=== PATIENT | male | born 1970 | race Caucasian/White ===

== ENCOUNTER 2018-10-19 20:49 | Observation (INO) | payer OTHER ==
[~2018-10-19] VITALS: Ht 185.4 cm; Wt 72.8 kg
[2018-10-19] MEDS ORDERED: ASPIRIN 81 MG CHEW TAB PO ONE (21:45)
[2018-10-19] MEDS ORDERED: FAMOTIDINE 20 MG/2 ML VIAL IV ONE (21:45)
[2018-10-19] MEDS ORDERED: ZOLPIDEM TARTRATE 5 MG TAB PO PRN (22:00)
[2018-10-19] MEDS ORDERED: DIPHENHYDRAMINE HCL INJ 50 MG/ML VIAL IV PRN (22:00)
[2018-10-19] MEDS ORDERED: CLONIDINE HCL 0.1 MG TAB PO PRN (22:00)
[2018-10-19] MEDS ORDERED: ASPIRIN 325 MG TAB PO NR (22:00)
[2018-10-19] MEDS ORDERED: METOPROLOL TARTRATE 25 MG TAB PO SCH ×2 (22:00→22:15)
[2018-10-19] MEDS ORDERED: ENALAPRILAT IV INJ 1.25 MG/ML VIAL IV PRN (22:00)
[2018-10-19] MEDS ORDERED: HYDROCODONE/APAP 7.5MG-325MG 1 EA TAB PO PRN (22:00)
[2018-10-19] MEDS ORDERED: ACETAMINOPHEN 325 MG TAB PO PRN (22:00)
[2018-10-19] MEDS ORDERED: ONDANSETRON HCL INJ 2MG/ML 2ML 2 MG/ML VIAL IV PRN (22:00)
[2018-10-19] MEDS: FAMOTIDINE 20 MG/2 ML VIAL IV SCH (22:13)
--- NOTE | 2018-10-19 22:41 | Diagnostic Imaging Report ---
EXAMINATION: CXR 2 VIEW - HOPD INDICATION: Chest tightness, shortness of breath ^[id number] ^2205 COMPARISON: None FINDINGS: PA and lateral views TUBES and LINES: None. LUNGS: Diffuse hyperinflation consistent with COPD. Pulmonary interstitium is mildly prominent. There is mild bronchial wall thickening. Subtle left perihilar airspace opacity is visible only on the PA image. PLEURA: No pleural effusion or pneumothorax. HEART AND MEDIASTINUM: The cardiomediastinal silhouette is unremarkable.. BONES AND SOFT TISSUES: The bones are diffusely demineralized. No focal osseous lesions. Curvilinear radiodensity in the anterior inferior chest on lateral image measures 7 mm suggestive of a foreign body. UPPER ABDOMEN: No free air under the diaphragm. IMPRESSION: Pulmonary hyperinflation consistent with COPD. Prominent pulmonary interstitium may be the result of an infectious/inflammatory process. A developing infiltrate in the left midlung field cannot be excluded. Recommend close interval follow-up chest x-ray to document interval change. Signed by: Dr. Balwinder Adames MD on 10/19/2018 10:37 PM
--- OUTSIDE RECORDS SUMMARY | 2018-10-19 23:23 | XMS REPORT ---
[facility] Address Unknown Phone Unavailable Care Team Providers Care Telegraph Equipment Maintainer Name Role Phone Luzma CHATMAN Unavailable Unavailable Problems This patient has no known problems. Allergies, Adverse Reactions, Alerts This patient has no known allergies or adverse reactions. Medications This patient has no known medications. Results Test Description Test Time Test Comments Text Results Atomic Results Result Comments CXR 2 VIEW - HOPD 2018-10-19 22:33:00 [facility] [address] [place] [address] Patient Name: NOHELIA BISHOP MR #: [id number] : 1970 Age/Sex: 48/M Req #: [id number] Adm Physician: Ordered by: ARABELLA CHATMAN MD Report #: [id number] Location: [facility] Room/Bed: Procedure: [id number] HOPD/CXR 2 VIEW - HOPD Exam Date: 10/19/18 Exam Time: 2204 REPORT STATUS: Signed EXAMINATION: CXR 2 VIEW - HOPD INDICATION: Chest tightness, shortness of breath [id number] COMPARISON: None FINDINGS: PA and lateral views TUBES and LINES: None. LUNGS: Diffuse hyperinflation consistent with COPD. Pulmonary interstitium is mildly prominent. There is mild bronchial wall thickening. Subtle left perihilar airspace opacity is visible only on the PA image. PLEURA: No pleural effusion or pneumothorax. HEART AND MEDIASTINUM: The cardiomediastinal silhouette is unremarkable.. BONES AND SOFT TISSUES: The bones are diffusely demineralized. No focal osseous lesions. Curvilinear radiodensity in the anterior inferior chest on lateral image measures 7 mm suggestive of a foreign body. UPPER ABDOMEN: No free air under the diaphragm. IMPRESSION: Pulmonary hyperinflation consistent with COPD. Prominent pulmonary interstitium may be the result of an infectious/inflammatory process. A developing infiltrate in the left midlung field cannot be excluded. Recommend close interval follow-up chest x-ray to document interval change. Signed by: Dr. Damon Adames MD on 10/19/2018 10:37 PM Dictated By: DAMON ADAMES MD 36 Transcribed By: ABY on 10/19/182236 COPY TO: ARABELLA CHATMAN MD
--- NOTE | 2018-10-19 23:30 | NUR ---
REPORT ATTEMPTED, STEFAN LAMAR RECENT ADMIT Addendum: 10/19/18 at 2358 by THOM Amendment candidoone in EDM - 10/19/18 at 2359 by THOM [facility] CALLED FOR TRANSPORT
--- NOTE | 2018-10-19 23:50 | NUR ---
REPORT ATTEMPTTED, RN STILL CURRENTLY WITH RECENT ADMIT
[2018-10-20] VITALS (7 sets, daily range): BP systolic 102–118; BP diastolic 69–80
--- NOTE | 2018-10-20 01:20 | NUR ---
Pt received from ED. Pt brought over before report received. Pt A&O and in no apparent distress. Pt on tele. Pt to stay overnight. All safety measures ensured and pt call grider near.
[2018-10-20 08:06] LABS: CREATINE KINASE 64 IU/L (30-200)
[2018-10-20 08:07] LABS: CALCIUM 9.2 mg/dL (8.4-10.2); CHOL/HDL RATIO 3.3 (3.9-4.7)
[2018-10-20 08:30] LABS: FREE THYROXINE INDEX 2.4472 (1.4-3.8); THYROID STIMULATING HORMONE 2.512 uIU/mL (0.350-4.940)
[2018-10-20] MEDS: FAMOTIDINE 20 MG/2 ML VIAL IV SCH (09:41)
[2018-10-20] MEDS: NICOTINE 14 MG/EA PATCH TOP SCH (09:41)
[2018-10-20] MEDS: METOPROLOL TARTRATE 25 MG TAB PO SCH ×2 (09:58→21:50)
--- NOTE | 2018-10-20 15:35 | NUR ---
Visit made by the Spiritual Care Department Pastoral Visitor, Erma Puri. PV provided pastoral presence, prayer, hospitality, and supportive listening. Pastoral Visitor informed pt/family of the scope of Data Ware[employer] and availability. MARY SALEH Manager Real Estate Spiritual Care Department O: [phone] Pager: [phone] ([phone] number calling from)
[2018-10-20] MEDS ORDERED: ONDANSETRON HCL 4 MG ORAL DISINTEGRATING TAB PO PRN (15:45)
[2018-10-20] MEDS ORDERED: ONDANSETRON HCL INJ 2MG/ML 2ML 2 MG/ML VIAL IV PRN (15:45)
[2018-10-20 16:12] LABS: CREATINE KINASE 53 IU/L (30-200)
--- NOTE | 2018-10-20 17:55 | Diagnostic Imaging Report ---
EXAM: CT Abdomen and Pelvis WITH contrast INDICATION: Chest pain. Right lower quadrant abdominal pain. Tachycardia. COMPARISON: None. TECHNIQUE: Abdomen and pelvis were scanned utilizing a multidetector helical scanner from the lung base to the pubic symphysis after administration of IV contrast. Coronal and sagittal reformations were obtained. Routine protocol was performed. Scan was performed when during portal venous phase. IV CONTRAST: 100 mL of Isovue-370 ORAL CONTRAST: Water COMPLICATIONS: None RADIATION DOSE: Total DLP: ... mGy*cm Estimated effective dose: (DLP x 0.015 x size factor) mSv CTDIvol has been reviewed. It is below the limits set by the Radiation Protocol Committee (RPC). Dose modulation, iterative reconstruction, and/or weight based adjustment of the mA/kV was utilized to reduce the radiation dose to as low as reasonably achievable. FINDINGS: LINES and TUBES: None. LOWER THORAX: Unremarkable HEPATOBILIARY: No focal hepatic lesions. No biliary ductal dilation. GALLBLADDER: No radio-opaque stones or sludge. No wall thickening. SPLEEN: No splenomegaly. Calcified granuloma in the spleen. PANCREAS: No focal masses or ductal dilatation. ADRENALS: No adrenal nodules KIDNEYS/URETERS: Kidneys enhance symmetrically. No hydronephrosis. No cystic or solid mass lesions. No stones. GI TRACT: No abnormal distention, wall thickening, or evidence of bowel obstruction. Appendix is normal. Scattered diverticulosis without evidence of diverticulitis PELVIC ORGANS/BLADDER: Coarse calcification in the prostate gland. LYMPH NODES: No lymphadenopathy. VESSELS: Unremarkable. PERITONEUM / RETROPERITONEUM: No free air or fluid. BONES: Unremarkable. SOFT TISSUES: Unremarkable. IMPRESSION: Scattered diverticulosis without evidence of diverticulitis Signed by: Dr. Marc Lopez M.D. on 10/20/2018 5:52 PM
[2018-10-20] MEDS: FAMOTIDINE 20 MG TAB PO SCH (18:06)
[2018-10-20] MEDS: ASPIRIN 325 MG TAB EC PO SCH (18:06)
[2018-10-20] MEDS: AZITHROMYCIN 500MG/NS 250 ML 250 ML IV SCH (18:06)
[2018-10-20] MEDS: CEFTRIAXONE SOD 1 GM/NS 50 ML 50 ML IV SCH (18:06)
[2018-10-20] MEDS ORDERED: SODIUM CHLORIDE 0.9% 50ML 50 ML ONE (18:39)
[2018-10-20] MEDS ORDERED: IOPAMIDOL 370 MG/ML 200 ML INFUS..BTL INJ ONE (18:39)
[2018-10-20] MEDS ORDERED: ALBUTEROL/IPRATROPIUM 3 ML NEB NEB SCH (19:00)
--- NOTE | 2018-10-20 22:19 | NUR ---
Cardiology Consult Dictation# [id number]
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
[2018-10-21] VITALS: BP 106/64
[2018-10-21 04:00] VITALS: BP 104/71
[2018-10-21 04:42] VITALS: BP 106/64
[2018-10-21] MEDS ORDERED: SODIUM CHLORIDE 0.9% 250ML 250 ML ONE (05:45)
[2018-10-21] MEDS: CEFTRIAXONE SOD 1 GM/NS 50 ML 50 ML IV SCH ×2 (05:50→17:57)
[2018-10-21 05:54] LABS: BASOPHILS # (AUTO) 0.1 (0.0-0.1); BASOPHILS % 1.1 % (0.0-1.0); EOSINOPHILS # (AUTO) 0.2 (0.0-0.4); EOSINOPHILS % 3.3 % (0.0-6.0); HEMATOCRIT 47.6 % (38.2-49.6); HEMOGLOBIN 15.9 g/dL (14.0-18.0); LYMPHOCYTES # (AUTO) 2.7 (1.0-3.2); LYMPHOCYTES % 37.6 % (18.0-39.1); MEAN CORPUSCULAR HEMOGLOBIN 31.2 pg (28-32); MEAN CORPUSCULAR HGB CONC 33.4 g/dL (31-35); MEAN CORPUSCULAR VOLUME 93.3 fL (81-99); MONOCYTES # (AUTO) 0.9 (0.2-0.8); MONOCYTES % 12.3 % (4.4-11.3); NEUTROPHILS # (AUTO) 3.3 (2.1-6.9); NEUTROPHILS % 45.1 % (38.7-80.0); PLATELET COUNT 224 x10e3/uL (140-360); RED CELL DISTRIBUTION WIDTH 12.8 % (11.7-14.4)
[2018-10-21 06:14] LABS: ANION GAP 11.8 mmol/L (8-16); BLOOD UREA NITROGEN 13 mg/dL (7-26); BUN/CREATININE RATIO 13 (6-25); CALCIUM 9.8 mg/dL (8.4-10.2); CARBON DIOXIDE 27 mmol/L (22-29); CHLORIDE 104 mmol/L (98-107); CREATININE, SERUM 1.01 mg/dL (0.72-1.25); EST GLOMERULAR FILTRATION RATE > 60 ML/MIN (60-); GLUCOSE 101 mg/dL (74-118); POTASSIUM 4.8 mmol/L (3.5-5.1); SODIUM 138 mmol/L (136-145)
--- NOTE | 2018-10-21 06:23 | NUR ---
The patient is laying in bed, respirations are even and unlabored. He reports no pain/discomfort at this. Family at bedside. HOB elevated, bed low, wheels locked and call light within reach. IV patent.
[2018-10-21 07:55] VITALS: BP 105/66
--- NOTE | 2018-10-21 08:00 | NUR ---
[facility] CALLED BEDSIDE RN REGARDING PATIENT DIET. PATIENT TO RECEIVE STRESS TEST TODAY AND THERE IS NO NPO DIET IN SYSTEM. STEFAN OTERO NOTIFIED TO PLACE NPO DIET FOR PROCEDURE AND MAKE SURE PATIENT TRAY DOES NOT GO IN ROOM. BEDSIDE, RN VERBALLY UNDERSTOOD.
[2018-10-21] MEDS: NICOTINE 14 MG/EA PATCH TOP SCH (09:00)
[2018-10-21] MEDS: METOPROLOL TARTRATE 25 MG TAB PO SCH ×2 (09:00→21:02)
[2018-10-21] MEDS: FAMOTIDINE 20 MG TAB PO SCH ×2 (09:33→16:53)
[2018-10-21] MEDS: ASPIRIN 325 MG TAB EC PO SCH (09:34)
--- NOTE | 2018-10-21 10:19 | NUR ---
patient off the unit for Stress test. AAOx3, No distress noted
[2018-10-21 12:22] LABS: CREATINE KINASE MB 0.4 ng/mL (0-5.0)
[2018-10-21 15:21] VITALS: BP 106/68
--- NOTE | 2018-10-21 15:50 | Progress Note ---
DATE: 10/21/2018 Cardiology Progress Note SUBJECTIVE: The patient denies chest pain or shortness of breath. OBJECTIVE: VITAL SIGNS: Temperature 98.8 degrees, pulse 73, respiratory rate 18, blood pressure 105/66, oxygen saturation 97% on room air. GENERAL: Awake, alert, in no acute distress. LUNGS: Clear to auscultation bilaterally. No wheezes or crackles. CARDIOVASCULAR: Normal rate, regular rhythm. No murmur. Normal S1, S2. ABDOMEN: Soft, nontender. EXTREMITIES: No edema. CARDIAC MEDICATIONS: Aspirin 325 mg p.o. daily, metoprolol tartrate 25 mg p.o. q.12 hours. LABORATORY DATA: WBC 7.23, hemoglobin 15.9, hematocrit 47.6, platelets 224. Sodium 138, potassium 4.8, chloride 104, CO2 27, BUN 13, creatinine 1.01. Troponin 0.002. Echocardiogram normal LV function. No significant valvular abnormalities. TELEMETRY: Normal sinus rhythm. IMPRESSION: 1. Chest pain. 2. Palpitations. 3. Chronic obstructive pulmonary disease suggested by chest x-ray. 4. Tobacco abuse. RECOMMENDATIONS: No evidence of myocardial infarction on serial cardiac biomarkers. Echocardiogram was unremarkable with normal LVEF. Nuclear stress test was without evidence of ischemia. Suspect the patient's symptoms are secondary to arrhythmia, however, none have been noted on telemetry thus far. He will need outpatient telemetry monitoring. No further cardiac evaluation is indicated during this admission. Continue metoprolol. Thank you for this consult. We will continue to follow. Kristine Gifford MD ABS/MODL /[id number]
[2018-10-21] MEDS: AZITHROMYCIN 500MG/NS 250 ML 250 ML IV SCH (16:02)
--- NOTE | 2018-10-21 18:52 | NUR ---
Got report from previous nurse. Call light within reach. Patient in bed. Family member at bedside.
[2018-10-21] MEDS ORDERED: CEFUROXIME250 MG PO ×2 (20:17→20:30)
[2018-10-21] MEDS ORDERED: ZITHROMAX500 MG PO ×2 (20:18→20:30)
[2018-10-21] MEDS ORDERED: LOPRESSOR25 MG PO (20:20)
--- NOTE | 2018-10-21 21:11 | NUR ---
Patient was discharged as per Mark Ozuna NP. Patient left via wheelchair. IV was taken out upon discharge. Discharge paperwork was given to patient and so was the blue folder.
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
== END 2018-10-21 21:10 | disposition home or self-care (01) ==
LOC: FSED 20:49 → ERHOLD 22:00 → IMCU 10-20 02:14
PROVIDERS: ADMIT Internal Medicine; ATTEND Internal Medicine
DX: R07.89 Other chest pain (principal); J44.0 Chronic obstructive pulmonary disease with (acute) lower respiratory infection; J18.9 Pneumonia, unspecified organism; J44.1 Chronic obstructive pulmonary disease with (acute) exacerbation; R20.0 Anesthesia of skin; R10.9 Unspecified abdominal pain; R00.2 Palpitations; K57.90 Diverticulosis of intestine, part unspecified, without perforation or abscess without bleeding; F17.210 Nicotine dependence, cigarettes, uncomplicated
CPT/HCPCS: 36415 ×2; 71046; 74177; 78452; 80048; 80053; 80061; 82310; 82550 ×2; 82553 ×3; 84436; 84443; 84479; 84484 ×3; 85025 ×2; 85379; 93005 ×2; 93017; 93306; 93925; 99284; A9502; G0378 ×3; J0456 ×2; J0696 ×2; J7050; Q9967